=== PATIENT | male | born 1955 | race Caucasian/White ===

== ENCOUNTER → 2018-05-14 | Outpatient (CLI) | payer MEDICARE, BC ==
[2014-03-27 12:44] VITALS: BP 127/67
[~2018-05-14] MED LIST: CILO100T21 PO; CIPR500T94 PO; FLUT16SP2 NS; HYDR-2769 PO; HYDR200T71 PO; MELO7.5T29 PO; MYCO500T PO; NIFE20CA PO; NIFE60TA16 PO; RANI150T2 PO; TIZA4CAP PO
--- NOTE | 2018-05-14 15:24 | KCIC ---
Examination: CHEST PA LATERAL History: Difficulty breathing for one week Comparison/Correlation: 09/23/2009 two-view chest x-ray exam Findings: PA and lateral views of chest were obtained. Heart size and pulmonary vasculature are normal. No infiltrate or pleural effusion. No pneumothorax. Bony structures are intact. Impression: No active disease. Electronically signed by: Adam Silveira MD (05/14/2018 3:19 PM) [facility]
== END | disposition home or self-care (01) ==
LOC: KCIC 14:30
PROVIDERS: ATTEND Nurse Practitioner Family
DX: R05 Cough (principal); R50.9 Fever, unspecified; R06.2 Wheezing
CPT/HCPCS: 71046